=== PATIENT | male | born 1950 | race Caucasian/White ===

== ENCOUNTER 2017-07-08 09:15 | Emergency (ER) | payer OTHER ==
[2017-07-08 09:33] VITALS: BP 129/87; PULSE 94; TEMP 99.9; BMI 26.4
[2017-07-08] MEDS ORDERED: diphenhydrAMINE HCL 12.5 MG/5 ML UNIT-DOSE CUPS PO ONE (09:48)
--- NOTE | 2017-07-08 09:48 | PDOC ---
History of Present Illness - General Chief Complaint: Sore Throat Stated Complaint: sore throat Time Seen by Provider: 07/08/17 09:47 - History of Present Illness Initial Comments: 07/08/17 09:49 Chief complaint: Sore throat History of present illness: Sore throat for several days, seen yesterday at urgent care, prescribed clindamycin, has taken 2 doses. There is no improvement today. Complains of pain with swallowing. Review of systems: No drooling, nausea or vomiting, difficulty breathing, noisy breathing or stridor. No cough, chest pain, shortness of breath, visual or focal neurologic symptoms, unsteadiness of gait. Complains of low-grade fever at approximately 99, mild abdominal pain due to prostate surgery several days ago, open prostatectomy. Passing gas well but no bowel movements. Past medical history: Prostate cancer with recent prostatectomy. Occasional dyspepsia. Social/family history reviewed and noncontributory Physical exam: Alert oriented well-developed well-nourished no acute distress cooperative, Afebrile, vital signs normal HEENT clear. Specifically, there is no drooling or stridor. The throat appears to be clear, without exudate swelling or mass. There is no significant erythema. The patient is swallowing and there is no airway compromise apparent Neck supple without bruit mass or nodes Chest clear CV regular without murmur rub or gallop Abdomen mildly distended but soft without mass or organomegaly. There is mild diffuse tenderness in the pelvic area at the operative site, but no guarding or rebound. A Miller catheter is in place and draining adequately. The urine appears clear Neurological intact Extremities no CCE Skin clear, no rash, adequate turgor and wet mucous membranes Impression: Acute viral pharyngitis, no sign of airway compromise. Plan: Continue antibiotics as prescribed. Symptomatic relief with gargles and analgesics. Return to ER if symptoms worsen or follow-up with primary physician 2-3 days. Past History - Past Medical History Allergies/Adverse Reactions: Allergies Allergy/AdvReac Type Severity Reaction Status Date / Time Sulfa (Sulfonamide Allergy Mild Hives Verified 07/08/17 09:16 Antibiotics) [Sulfa(Sulfonamide Antibiotics)] Home Medications: Ambulatory Orders Docusate Sodium [Colace] 100 mg PO TID 07/08/17 Famotidine [Pepcid] 20 mg PO DAILY 07/08/17 Oxybutynin Chloride [Oxybutynin Chloride ER] 5 mg PO TID 07/08/17 Oxycodone HCl/Acetaminophen [Oxycodone-Acetaminophen 5-325] 1 tab PO PRN Tamsulosin HCl 1 tab PO DAILY 07/08/17 COPD: No GI Disorders: Yes (GERD) HTN: Yes - Suicide/Smoking/Psychosocial Hx Smoking Status: No Smoking History: Never smoked Number of Cigarettes Smoked Daily: 0 Information on smoking cessation initiated: No Hx Alcohol Use: No Drug/Substance Use Hx: No Substance Use Type: None Hx Substance Use Treatment: No *Physical Exam - Vital Signs Last Vital Signs Temp Pulse Resp BP Pulse Ox 99.9 F H 94 H 20 129/87 99 07/08/17 09:16 07/08/17 09:16 07/08/17 09:16 07/08/17 09:16 07/08/17 09:16 Medical Decision Making - Medical Decision Making 07/08/17 10:11 Patient states that his pain is improved after gargling with anesthetic. He is swallowing adequately and taking by mouth fluids. He is comfortable and in no significant pain upon discharge with family to follow-up as directed. *DC/Admit/Observation/Transfer Diagnosis at time of Disposition: Viral pharyngitis - Discharge Dispostion Disposition: HOME Condition at time of disposition: Improved Admit: No - Referrals - Patient Instructions Printed Discharge Instructions: DI for Viral Pharyngitis Additional Instructions: Try to drink lots of fluids to stay hydrated Finish antibiotics as prescribed Continue ibuprofen for pain relief Local anesthetic as directed Return to ER if the pain is worse, or if there is any difficulty breathing, or any sign of airway blockage such as noisy breathing or drooling. Otherwise follow-up with primary physician and surgeon as directed for postop care. - Post Discharge Activity
[2017-07-08] MEDS ORDERED: MAG HYDROX/AL HYDROX/SIMETH 30 ML UNIT-DOSE CUP PO ONE (09:49)
== END 2017-07-08 10:14 | disposition home or self-care (01) ==
LOC: FER 09:15
DX: J02.8 Acute pharyngitis due to other specified organisms (principal); B97.89 Other viral agents as the cause of diseases classified elsewhere; I10 Essential (primary) hypertension; K21.9 Gastro-esophageal reflux disease without esophagitis
CPT/HCPCS: 99281-25